=== PATIENT | male | born 1950 | race Caucasian/White ===

== ENCOUNTER 2016-06-13 10:11 | Inpatient (IN) | payer OTHER, MEDICARE ==
[~2016-06-13] VITALS: Ht 172.7 cm; Wt 88.0 kg
[~2016-06-13 10:11] MED LIST: ASPI1TAB69 PO; COQ1200C PO; GLYB5TAB3 PO; LISI20TA PO; METF1000 PO; PIOG30TA4 PO; PRAV80TA2 PO; SERT-129 PO
[2016-06-13 10:45] VITALS: BP 137/78; PULSE 73; RESP 20; TEMP 97.7; O2SAT 96
[2016-06-13] MEDS ORDERED: INSULIN HUMAN REGULAR 1,000 UNITS/10 ML VIAL SQ PRN (11:00)
[2016-06-13] MEDS ORDERED: SODIUM CHLORID 0.9% 500 ML IV SCH (11:00)
[2016-06-13] MEDS ORDERED: LACTATED RINGER'S 1000 ML IV SCH (11:00)
[2016-06-13] MEDS ORDERED: VANCOMYCIN HCL 1000 MG ON-CALL/NS 250 ML IV SCH ×2 (11:00)
[2016-06-13] MEDS ORDERED: ceFAZolin 1,000 MG/NS 100 ML IV SCH ×2 (11:00)
[2016-06-13] MEDS ORDERED: METOPROLOL TARTRATE 25 MG TAB PO PRN (11:00)
[2016-06-13] MEDS ORDERED: ACETAMINOPHEN 1000 MG/100 ML VIAL IV SCH (11:00)
[2016-06-13] MEDS ORDERED: SODIUM CHLOR 0.9% 250 ML INJ 250 ML ONE (11:06)
[2016-06-13 11:37] LABS: AUTOMATED NEUTROPHIL # 2.5 TH/MM3 (1.8-7.7); BASOPHIL # 0.1 TH/MM3 (0-0.2); BASOPHIL % 1.4 % (0.0-2.0); EOSINOPHIL # 0.1 TH/MM3 (0-0.4); EOSINOPHIL % 2.2 % (0.0-4.0); HEMATOCRIT 42.8 % (39.0-51.0); HEMO FLAGS DIFF FINAL; LYMPH % 37.5 % (9.0-44.0); LYMPHOCYTE # 1.9 TH/MM3 (1.0-4.8); MEAN CELL VOLUME 86.6 FL (80.0-100.0); MEAN CORPUSCULAR HEMOGLOBIN 29.8 PG (27.0-34.0); MEAN CORPUSCULAR HGB CONC 34.4 % (32.0-36.0); MONO % 8.3 % (0.0-8.0); NEUT % 50.6 % (16.0-70.0); PLATELET COUNT 184 TH/MM3 (150-450); RED BLOOD COUNT 4.94 MIL/MM3 (4.50-5.90); RED CELL DISTRIBUTION WIDTH 13.9 % (11.6-17.2); WHITE BLOOD COUNT 4.9 TH/MM3 (4.0-11.0)
[2016-06-13] MEDS ORDERED: BUPIVACAINE LIPOSOME PF 1.3% 20 ML VIAL ONE (11:38)
[2016-06-13 11:52] LABS: BICARBONATE 23.7 MEQ/L (21.0-32.0); POTASSIUM 4.1 MEQ/L (3.5-5.1)
[2016-06-13] MEDS ORDERED: MIDAZOLAM HCL 5 MG/5 ML VIAL ONE (13:02)
[2016-06-13] MEDS ORDERED: BUPRENORPHINE HCL 0.3 MG/1 ML VIAL ONE (13:02)
[2016-06-13] MEDS ORDERED: METOCLOPRAMIDE HCL 10 MG/2 ML VIAL ONE (13:03)
[2016-06-13] MEDS ORDERED: DEXAMETHASONE SOD PHOS 4 MG/ML VIAL ONE (13:03)
[2016-06-13] MEDS ORDERED: ONDANSETRON HCL 4 MG/2 ML VIAL IV PUSH ONE (13:23)
[2016-06-13] MEDS ORDERED: NEOSTIGMINE 3 MG/3 ML SYR IV ONE (13:23)
[2016-06-13] MEDS ORDERED: KETOROLAC TROMETHAMINE 60 MG/2 ML (IM) VIAL IM ONE (13:23)
[2016-06-13] MEDS ORDERED: PROPOFOL 200 MG/20 ML AMP IV ONE (13:23)
[2016-06-13] MEDS ORDERED: LACTATED RINGER'S 1000 ML INJ 2,000 ML IV ONE (13:23)
[2016-06-13] MEDS ORDERED: BUPIVACAINE/EPINEPHRINE 0.25% PF 30 ML VIAL INFIL ONE (14:26)
[2016-06-13] MEDS ORDERED: ceFAZolin INJ 1,000 MG VIAL IV ONE (17:02)
[2016-06-13] MEDS ORDERED: fentaNYL CITRATE 250 MCG/5 ML AMP ONE (18:51)
--- NOTE | 2016-06-13 18:57 | HHI.PR ---
cc: Maxwell Trotter MD Immediate Post Op Note Procedure Date: Jun 13, 2016 Pre Op Diagnosis: Complex incisional hernia Prominent xiphoid process Post Op Diagnosis: Same Surgeon: Maxwell Trotter Flotation Tender Helper(s): RAMY Porter Procedure: Excision xiphoid process Transverse Abdominis Rectus reconstruction with posterior component separation Findings: Multiple hernias supraumbilical position Complications: None Specimen(s) removed: None Estimated blood loss: 100 ml Anesthesia: General Drains: None IVF (2000 ml) Patient to: PACU Patient Condition: Good Date/Time of Procedure: SEE SURGICAL CARE RECORD Maxwell Trotter MD Jun 13, 2016 18:57
[2016-06-13] MEDS: LACTATED RINGER'S 1000 ML INJ 1,000 ML IV SCH (18:58)
[2016-06-13] MEDS ORDERED: ACETAMINOPHEN/HYDROcodone 325 MG/5 MG TAB PO PRN (19:00)
[2016-06-13] MEDS ORDERED: DEXTROSE 50% IN WATER 50 ML VIAL(D50) IV PUSH PRN (19:00)
[2016-06-13] MEDS ORDERED: diphenhydrAMINE HCL 50 MG/ML VIAL IVP PRN (19:00)
[2016-06-13] MEDS ORDERED: SODIUM CHLORIDE 0.9% FLUSH 5 ML FLUSH IVF PRN (19:00)
[2016-06-13] MEDS ORDERED: GLUCAGON 1 MG/ML VIAL OTHER PRN (19:00)
[2016-06-13] MEDS ORDERED: NALOXONE HCL 0.4 MG/ML AMP IV PRN (19:00)
[2016-06-13] MEDS ORDERED: Post-op Orders (for Pharmacy) MISC XX ONE (19:00)
[2016-06-13] MEDS ORDERED: ONDANSETRON HCL 4 MG/2 ML VIAL IV PRN (19:00)
[2016-06-13] MEDS: MORPHINE SULFATE 30 MG/30 ML PCA IV SCH (19:24)
[2016-06-13] MEDS: SODIUM CHLORIDE 0.9% FLUSH 5 ML FLUSH IVF SCH (21:00)
[2016-06-13] MEDS: INSULIN NovoLIN REGULAR SUPPLEMENTAL SCALE SQ SCH (22:00)
[2016-06-13] MEDS: ceFAZolin 2 GM PREMIX 50 ML IV SCH (22:00)
--- NOTE | 2016-06-13 22:39 | EKG ---
Date Performed: 06/13/2016 Time Performed: 10:45:14 PTAGE: 65 years EKG: Sinus rhythm MARKED LEFT AXIS DEVIATION ABNORMAL ECG PREVIOUS TRACING : 10/04/2008 09.17 DOCTOR: Eliseo Marcus Interpretating Date/Time 06/13/2016 22:39:30
[2016-06-14] MEDS: LACTATED RINGER'S 1000 ML INJ 1,000 ML IV SCH ×3 (03:50→18:58)
[2016-06-14 04:08] LABS: BASOPHIL % 0.4 % (0.0-2.0); HEMATOCRIT 38.2 % (39.0-51.0); HEMO FLAGS DIFF FINAL; LYMPHOCYTE # 1.5 TH/MM3 (1.0-4.8); MEAN CELL VOLUME 87.9 FL (80.0-100.0); MEAN CORPUSCULAR HEMOGLOBIN 30.1 PG (27.0-34.0); MEAN CORPUSCULAR HGB CONC 34.3 % (32.0-36.0); MONO % 7.3 % (0.0-8.0); NEUT % 77.3 % (16.0-70.0); PLATELET COUNT 165 TH/MM3 (150-450); RED BLOOD COUNT 4.35 MIL/MM3 (4.50-5.90); RED CELL DISTRIBUTION WIDTH 13.6 % (11.6-17.2); WHITE BLOOD COUNT 10.3 TH/MM3 (4.0-11.0)
[2016-06-14 04:33] LABS: BICARBONATE 23.5 MEQ/L (21.0-32.0); POTASSIUM 4.3 MEQ/L (3.5-5.1)
[2016-06-14] MEDS: ceFAZolin 2 GM PREMIX 50 ML IV SCH ×2 (06:00→15:42)
[2016-06-14] MEDS: INSULIN NovoLIN REGULAR SUPPLEMENTAL SCALE SQ SCH ×4 (06:13→20:32)
[2016-06-14] MEDS: SODIUM CHLORIDE 0.9% FLUSH 5 ML FLUSH IVF SCH ×2 (09:00→20:29)
[2016-06-14 12:00] VITALS: BP 112/71; PULSE 83; RESP 17; TEMP 97.1; O2SAT 95
[2016-06-14] MEDS: PCA - TOTAL MG MORPHINE DELIVERED PER SHIFT SCH ×2 (14:00→20:27)
[2016-06-14 16:00] VITALS: BP 126/69; PULSE 89; RESP 19; TEMP 98.9; O2SAT 92
[2016-06-14] MEDS: ENOXAPARIN SODIUM 30 MG/0.3 ML SYRINGE SQ SCH (16:54)
[2016-06-14 17:01] VITALS: O2SAT 93
--- NOTE | 2016-06-14 19:44 | HHI.PR ---
Subjective Subjective Notes Resting in bed Pain controlled Objective Vitals/I&O Vital Signs Date Time Temp Pulse Resp B/P Pulse Ox O2 Delivery O2 Flow Rate FiO2 06/14/16 17:01 93 Nasal Cannula 2.00 06/14/16 16:00 98.9 89 19 126/69 Labs Laboratory Tests Test 06/14/16 03:47 White Blood Count 10.3 Red Blood Count 4.35 Hemoglobin 13.1 Hematocrit 38.2 Mean Corpuscular Volume 87.9 Mean Corpuscular Hemoglobin 30.1 Mean Corpuscular Hemoglobin 34.3 Concent Red Cell Distribution Width 13.6 Platelet Count 165 Mean Platelet Volume 9.0 Neutrophils (%) (Auto) 77.3 Lymphocytes (%) (Auto) 15.0 Monocytes (%) (Auto) 7.3 Eosinophils (%) (Auto) 0.0 Basophils (%) (Auto) 0.4 Neutrophils # (Auto) 8.0 Lymphocytes # (Auto) 1.5 Monocytes # (Auto) 0.8 Eosinophils # (Auto) 0.0 Basophils # (Auto) 0.0 CBC Comment DIFF FINAL Differential Comment Sodium Level 139 Potassium Level 4.3 Chloride Level 106 Carbon Dioxide Level 23.5 Anion Gap 10 Blood Urea Nitrogen 27 Creatinine 1.44 Estimat Glomerular Filtration 49 Rate Random Glucose 179 Calcium Level 7.8 Cardiovascular: Regular Lungs: Clear Abdomen: Other (midline incision with steri strips on---c/d/i; abd binder in place; BS hypoactive ) Extremities: No edema A/P Assessment and Plan 65 year old male POD1 TAWR -Tolerating clears; will advance as bowel function returns -OOB to chair -IS -CIRCUIT COURT CLERK for pain -Family at bedside Attending Note - Dr. Trotter Abdomen soft and dry; steristrips intact D/C [place] in AM The exam, history, and the medical decision-making described in the above note were completed with the assistance of the mid-level provider. I reviewed and agree with the findings presented. I attest that I had a [id number] encounter with the patient on the same day, and personally performed and documented my assessment and findings in the medical record. Asmita Deal Jun 14, 2016 19:44 Maxwell Trotter MD Jun 14, 2016 20:07
[2016-06-14 20:00] VITALS: BP 135/73; PULSE 79; RESP 21; TEMP 97.7; O2SAT 98
[2016-06-15] VITALS (7 sets, daily range): BP systolic 125–142; BP diastolic 63–78; PULSE 79–94; RESP 16–20; TEMP 97.6–99.5; O2SAT 92–96
[2016-06-15] MEDS: LACTATED RINGER'S 1000 ML INJ 1,000 ML IV SCH ×2 (04:40→14:40)
[2016-06-15] MEDS: INSULIN NovoLIN REGULAR SUPPLEMENTAL SCALE SQ SCH ×4 (05:16→20:53)
[2016-06-15] MEDS: PCA - TOTAL MG MORPHINE DELIVERED PER SHIFT SCH ×3 (05:16→20:53)
[2016-06-15] MEDS: SODIUM CHLORIDE 0.9% FLUSH 5 ML FLUSH IVF SCH ×2 (09:00→20:53)
[2016-06-15] MEDS ORDERED: INFLUENZA VIRUS VACCINE (QUADRIVALENT) 0.5 ML SYR IM ONE (10:00)
[2016-06-15] MEDS ORDERED: PNEUMOCOCCAL POLYVALENT INJ 25 MCG/0.5 ML SYR IM ONE (10:00)
--- NOTE | 2016-06-15 10:36 | HHI.PR ---
Subjective Subjective Notes Resting in bed Pain controlled Was able to sit on the side of the bed last night Objective Vitals/I&O Vital Signs Date Time Temp Pulse Resp B/P Pulse Ox O2 Delivery O2 Flow Rate FiO2 06/15/16 08:45 93 Nasal Cannula 3.00 06/15/16 08:00 98.7 83 18 142/78 Cardiovascular: Regular Lungs: Clear Abdomen: Other (midline incision with steri strips in place---c/d/i; hypoactive BS) Extremities: No edema A/P Assessment and Plan 65 year old male POD2 TAWR by Dr[address] Trotter -Advance diet as tolerated -OOB to chair---PT eval and treat consult -IS -SUBEDITOR for pain Attending Note - Dr. Trotter Less comfortable than yesterday, but walking and passing flatus Wound clean and dry, steristrips intact. Continue SUBEDITOR The exam, history, and the medical decision-making described in the above note were completed with the assistance of the mid-level provider. I reviewed and agree with the findings presented. I attest that I had a [id number] encounter with the patient on the same day, and personally performed and documented my assessment and findings in the medical record. Asmita Deal Jun 15, 2016 10:36 Maxwell Trotter MD Jun 15, 2016 21:48
[2016-06-15] MEDS: ENOXAPARIN SODIUM 30 MG/0.3 ML SYRINGE SQ SCH (16:47)
[2016-06-16] VITALS: BP 114/61; PULSE 93; RESP 20; TEMP 97.9; O2SAT 94
[2016-06-16] MEDS: LACTATED RINGER'S 1000 ML INJ 1,000 ML IV SCH ×3 (00:40→20:18)
[2016-06-16] MEDS: INSULIN NovoLIN REGULAR SUPPLEMENTAL SCALE SQ SCH ×4 (05:32→20:20)
[2016-06-16] MEDS: PCA - TOTAL MG MORPHINE DELIVERED PER SHIFT SCH ×3 (05:33→20:18)
[2016-06-16 08:00] VITALS: BP 130/76; PULSE 78; RESP 16; TEMP 98.4; O2SAT 95
[2016-06-16] MEDS: SODIUM CHLORIDE 0.9% FLUSH 5 ML FLUSH IVF SCH ×2 (08:37→20:18)
[2016-06-16 12:00] VITALS: BP 132/76; PULSE 86; RESP 18; TEMP 97.8; O2SAT 93
--- NOTE | 2016-06-16 15:28 | HHI.PR ---
Subjective Subjective Notes Still sore. Some flatus, no BM yet. Objective Vitals/I&O Vital Signs Date Time Temp Pulse Resp B/P Pulse Ox O2 Delivery O2 Flow Rate FiO2 06/16/16 14:00 18 06/16/16 12:00 97.8 86 132/76 93 06/15/16 08:45 Nasal Cannula 3.00 Lungs: Clear Abdomen: Post-op tenderness Narrative Exam Steristrips dry without erythema. A/P Assessment and Plan 65 year old male POD#3 TAWR -IS -TECHNICAL REP for pain for one more day; will D/C in AM. -Transition to PO meds -Anticipate D/C Mon or 06/19 Maxwell Trotter MD Jun 16, 2016 15:28
[2016-06-16 16:00] VITALS: BP 131/75; PULSE 85; RESP 18; TEMP 98.1; O2SAT 94
[2016-06-16] MEDS: ENOXAPARIN SODIUM 30 MG/0.3 ML SYRINGE SQ SCH (17:14)
[2016-06-16] MEDS: MORPHINE SULFATE 30 MG/30 ML PCA IV SCH (18:09)
[2016-06-16 20:00] VITALS: BP 132/77; PULSE 80; RESP 18; TEMP 97.5; O2SAT 95
[2016-06-17] VITALS: BP 134/76; PULSE 79; RESP 18; TEMP 97.9; O2SAT 95
[2016-06-17 03:47] VITALS: BP 121/74; PULSE 75; RESP 16; TEMP 97.6; O2SAT 95
[2016-06-17] MEDS: LACTATED RINGER'S 1000 ML INJ 1,000 ML IV SCH ×4 (05:00→20:02)
[2016-06-17] MEDS: PCA - TOTAL MG MORPHINE DELIVERED PER SHIFT SCH ×3 (05:00→19:58)
[2016-06-17] MEDS: INSULIN NovoLIN REGULAR SUPPLEMENTAL SCALE SQ SCH ×4 (05:02→19:58)
[2016-06-17 08:00] VITALS: BP 135/85; PULSE 75; RESP 18; TEMP 98.4; O2SAT 91
[2016-06-17] MEDS: SODIUM CHLORIDE 0.9% FLUSH 5 ML FLUSH IVF SCH ×2 (09:15→19:58)
--- NOTE | 2016-06-17 10:33 | HHI.PR ---
Subjective Subjective Notes Doing well, passing flatus. No BM yet. Tolerating liquids, regulating own diet, ate a little too much last night. Getting up, walking in room with walker, walking halls with PT. Objective Vitals/I&O Vital Signs Date Time Temp Pulse Resp B/P Pulse Ox O2 Delivery O2 Flow Rate FiO2 06/17/16 08:00 98.4 75 18 135/85 91 06/17/16 08:00 Room Air 06/16/16 21:55 3.00 Cardiovascular: Regular Lungs: Clear Abdomen: Non-distended, Other (Incision well approximated, steri strips intact and dry. No erythema.), Post-op tenderness Extremities: No edema, Perfused A/P Assessment and Plan Postop AWR, doing well. Transition to oral pain meds. Continue to walk. Wean LATIN PROFESSOR off, KVO IVFs. Ian Muniz MD Jun 17, 2016 10:33
[2016-06-17 12:00] VITALS: BP 131/71; PULSE 85; RESP 18; TEMP 97.8; O2SAT 93
[2016-06-17 16:00] VITALS: BP 139/76; PULSE 78; RESP 20; TEMP 98.9; O2SAT 90
[2016-06-17] MEDS: ENOXAPARIN SODIUM 30 MG/0.3 ML SYRINGE SQ SCH (17:05)
[2016-06-17] MEDS: ACETAMINOPHEN/HYDROcodone 325 MG/5 MG TAB PO PRN ×2 (18:05→23:16)
[2016-06-17 20:00] VITALS: BP 128/69; PULSE 79; RESP 18; TEMP 97.5; O2SAT 95
[2016-06-18] VITALS: BP 114/72; PULSE 73; RESP 18; TEMP 96.6; O2SAT 95
[2016-06-18] MEDS: ACETAMINOPHEN/HYDROcodone 325 MG/5 MG TAB PO PRN ×2 (03:13→19:59)
[2016-06-18 04:00] VITALS: BP 137/81; PULSE 70; RESP 18; TEMP 96.1; O2SAT 95
[2016-06-18] MEDS: PCA - TOTAL MG MORPHINE DELIVERED PER SHIFT SCH ×3 (05:27→20:04)
[2016-06-18] MEDS: INSULIN NovoLIN REGULAR SUPPLEMENTAL SCALE SQ SCH ×4 (05:28→20:04)
[2016-06-18] MEDS ORDERED: HYDR-3516 PO (09:30)
--- NOTE | 2016-06-18 11:18 | HHI.PR ---
Subjective Subjective Notes Ambulating in hallway with PT Objective Vitals/I&O Vital Signs Date Time Temp Pulse Resp B/P Pulse Ox O2 Delivery O2 Flow Rate FiO2 06/18/16 04:00 96.1 70 18 137/81 95 06/17/16 22:15 Room Air 06/16/16 21:55 3.00 Cardiovascular: Regular Lungs: Clear Abdomen: Other (mildly distended; midline incision with steri strips in place ) Extremities: No edema A/P Assessment and Plan 65 year old male POD5 [address] Trotter -Tolerating diet -Will add suppository and Miralax -OOB to chair---PT following -IS -DC REPORT PROGRAMMER and IVF -[place] for pain -Case management consult for HHC with PT -Plan for DC tomorrow AM Attending Note - Dr. Trotter Abdomen soft; steristrips dry Lives alone at home; will need home PT and HHC for 1-2 weeks The exam, history, and the medical decision-making described in the above note were completed with the assistance of the mid-level provider. I reviewed and agree with the findings presented. I attest that I had a [id number] encounter with the patient on the same day, and personally performed and documented my assessment and findings in the medical record. Asmita Deal Jun 18, 2016 11:18 Maxwell Trotter MD Jun 18, 2016 22:57
--- NOTE | 2016-06-18 11:20 | HHI.FF ---
Face to Face Verification Diagnosis: (1) Hernia of abdominal cavity Physical Therapy Order: Evaluate and Treat, Improve ambulation, Strength and gait training Instructions: No restrictions Home Health Nursing Order: Wound care and dressing changes Nursing assessment with vital signs Instructions: Trevon Wound monitoring---clean dry dressing if needed I have seen patient Jareth Hamilton on 06/18/16. My clinical findings support the need for the requested home health care services because: Limited ability to care for self High risk of falls I certify that my clinical findings support that this patient is homebound because: Post-op weakness Unsteady gait/balance Asmita Deal Jun 18, 2016 11:20
[2016-06-18] MEDS: POLYETHYLENE GLYCOL 17 GM PKG PO SCH (11:56)
[2016-06-18] MEDS: SODIUM CHLORIDE 0.9% FLUSH 5 ML FLUSH IVF SCH ×2 (11:57→20:03)
[2016-06-18 12:00] VITALS: BP 123/75; PULSE 79; RESP 18; TEMP 96; O2SAT 92
[2016-06-18] MEDS ORDERED: BISACODYL 10 MG SUPP RECTAL ONE (12:00)
[2016-06-18 16:00] VITALS: BP 143/80; PULSE 79; RESP 20; TEMP 96; O2SAT 94
[2016-06-18] MEDS: ENOXAPARIN SODIUM 30 MG/0.3 ML SYRINGE SQ SCH (16:49)
[2016-06-18 20:00] VITALS: BP 141/70; PULSE 82; RESP 18; TEMP 96.6; O2SAT 94
[2016-06-18] MEDS: LACTATED RINGER'S 1000 ML INJ 1,000 ML IV SCH (22:17)
[2016-06-19] VITALS: BP 133/72; PULSE 73; RESP 18; TEMP 96.5; O2SAT 95
[2016-06-19] MEDS: PCA - TOTAL MG MORPHINE DELIVERED PER SHIFT SCH (06:00)
[2016-06-19] MEDS: ACETAMINOPHEN/HYDROcodone 325 MG/5 MG TAB PO PRN (06:26)
[2016-06-19] MEDS: INSULIN NovoLIN REGULAR SUPPLEMENTAL SCALE SQ SCH (06:27)
[2016-06-19 08:00] VITALS: BP 135/77; PULSE 83; RESP 18; TEMP 97.2; O2SAT 95
[2016-06-19] MEDS ORDERED: WALKER WHEELS/F1 MIS (08:51)
[2016-06-19] MEDS: POLYETHYLENE GLYCOL 17 GM PKG PO SCH (08:52)
[2016-06-19] MEDS: SODIUM CHLORIDE 0.9% FLUSH 5 ML FLUSH IVF SCH (08:52)
--- NOTE | 2016-06-19 10:43 | HHI.DS ---
Discharge Summary Admission Date Jun 13, 2016 at 19:02 Discharge Date: Jun 19, 2016 Admitting Diagnosis Brief History 65 year old male s/p TAWR by Dr. Trotter PE at Discharge Alert and awake sitting on the side of the bed Resp; CTAB Cardio: RRR Abd: Steristrips dry without erythema; Abd soft Hospital Course This is a 65 year old male s/p TAWR by Dr. Trotter. The patient's pain is controlled using oral pain medications. He is able to tolerate a regular diet. He was able to ambulate with the assistance of a front wheeled walker. HHC and PT was arranged. He is able to shower. He will follow up with Dr. Trotter in about one week. Pt Condition on Discharge: Good Discharge Disposition: Disch w/ Home Health Serv Discharge Instructions DIET: Follow Instructions for: As Tolerated, No Restrictions Activities you can perform: See Additionl Instruction Other Activity Instructions: Okay to shower; pat incision dry If having trouble with bowels---can continue over the counter Miralax and Colace Asmita Deal Jun 19, 2016 10:43
--- NOTE | 2016-07-05 07:15 | MP ---
cc: MAXWELL TROTTER M.D. DATE OF SURGERY 06/13/2016 PROCEDURE 1. Transversus abdominis wall reconstruction with posterior component release 2. Xyphoid excision ANESTHESIA General endotracheal SURGEON Maxwell Trotter MD ESTIMATED BLOOD LOSS 100 mL FLUIDS 2600 mL crystalloid COMPLICATIONS None DRAINS None SPECIMEN Xyphoid excision tissue to pathology. PREOPERATIVE DIAGNOSIS Complex incisional midline hernia. POSTOPERATIVE DIAGNOSIS Complex incisional midline hernia. PROCEDURE IN DETAIL The patient was taken to the operating room after tap block was performed in the holding area. He was placed on the operating table in the supine position. After an adequate level of general endotracheal anesthesia was achieved, the abdomen was prepped and draped in the field. Time-out was taken confirming the correct patient, site, and procedure to be performed. The midline incision was opened and the previous scar removed. Dissection was carried down to the hernia. The hernia sac was opened and the bowel that was present was reduced into the abdominal cavity. At this point, the xyphoid, which was noted to be hypertrophic and a protruding was dissected with electrocautery back to the base. A Ryla bone cutter was then used to cut the excess Xiphoid off and the edges of the bone were smoothed with a bone rasp. When this had been completed, the bone was made hemostatic with electrocautery. This allowed for more anatomic xyphoid process without a protruding notch. At this point, the patient had all adhesions taken down from the anterior abdominal wall. The rectus fascia was opened and a retro-rectus plane was created. Care was taken to preserve as much of the blood supply and nerves perforating as possible. Dissection was carried out laterally beyond the rectus muscles and a lateral posterior component release was accomplished with electrocautery. When this had been accomplished on both sides, the posterior fascia was able to be closed with minimal to no tension. At this point, two pieces of Seprafilm were placed intra-abdominally to help prevent and minimize the risk of intra-abdominal adhesions. The posterior fascia was closed with 0-Vicryl suture in a simple interrupted fashion. When this had been completed, a 20 x 30 cm piece of Synacor mesh from [employer] was brought up and the corners were trimmed into a slightly oval shape. Additional mesh superiorly was trimmed down to allow for a good fit. The mesh was then placed in the retrorectus space and fixed at multiple points with 0-Vicryl suture. When this had been completed, the anterior fascia was pulled over this and closed with #1 Prolene suture in an interrupted fashion. The space, which was minimal, was closed down with running 3-0 Vicryl suture. The midline was closed with interrupted 3-0 Vicryl suture and the skin closed with 5-0 PDS in a running subcuticular fashion. The wound was dressed with Steri-Strips and an abdominal binder applied. Sponge, needle and instrument counts were reported be correct. The patient tolerated the procedure well. MD JUWAN Sanabria/MARIN /1:01 PM /7:02 AM
== END 2016-06-19 10:39 | disposition home health service (06) | DRG 355 ==
LOC: HSDC 10:11 → EDSTATUS 12:30 → HSDI 19:02 → HPAC 06-14 00:05 → N07B 06-14 12:21
PROVIDERS: ADMIT Surgery Trauma Surgery; ATTEND Surgery Trauma Surgery
PROC: 3E0T3CZ (ICD-10-PCS; 2016-06-13)
PROC: 0PB00ZZ Excision of Sternum, Open Approach (ICD-10-PCS; 2016-06-13)
PROC: 0WUF0JZ Supplement Abdominal Wall with Synthetic Substitute, Open Approach (ICD-10-PCS; principal; 2016-06-13 13:40)
DX: K43.2 Incisional hernia without obstruction or gangrene (principal); I10 Essential (primary) hypertension; E11.9 Type 2 diabetes mellitus without complications; M89.38 Hypertrophy of bone, other site; E78.5 Hyperlipidemia, unspecified; Z79.84 Long term (current) use of oral hypoglycemic drugs; Z85.828 Personal history of other malignant neoplasm of skin; Z87.891 Personal history of nicotine dependence
CPT/HCPCS: 80048; 82948; 85025; 88305; 88311; 90686; 90732; 93005; 94150; C1765; C1781; C9290; J0131; J0592; J0690; J1100; J1650; J1885; J2250; J2270; J2405; J2710; J2765; J3010; J3370; J7050; J7120; Q2038